=== PATIENT | male | born 1970 | race Caucasian/White ===

== ENCOUNTER 2021-05-09 13:52 | Emergency (ER) | payer MEDICAID ==
[2021-05-09 14:09] VITALS: BP 129/74; PULSE 61; RESP 18; TEMP 98.1
--- NOTE | 2021-05-09 15:36 | ED ---
General Adult HPI - General Chief complaint: Fever Stated complaint: Wants COVID Test Time Seen by Provider: 05/09/21 15:25 Source: patient Mode of arrival: ambulatory Limitations: no limitations - History of Present Illness Initial comments: Dictation was produced using [employer] dictation software. please excuse any grammatical, word or spelling errors. Chief Complaint: 51-year-old male presents to the emergency department for covid test History of Present Illness: Is 51-year-old male presents today for Covid test. Over the last couple days he's been having symptoms of fatigue and fever with generalized weakness. He states that his symptoms then reminded him of when he was contracted Covid several months ago. Patient states that he recovered. He feels fine at the moment. Once to be tested in order to work activities. Patient denies any symptoms at this time. The ROS documented in this emergency department record has been reviewed and confirmed by me. Those systems with pertinent positive or negative responses have been documented in the HPI. All other systems are other negative and/or noncontributory. PHYSICAL EXAM: General Impression: Alert and oriented x3, not in acute distress HEENT: Normocephalic atraumatic, extra-ocular movements intact, pupils equal and reactive to light bilaterally, mucous membranes moist. Cardiovascular: Heart regular rate and rhythm Chest: Able to complete full sentences, no retractions, no tachypnea Abdomen: abdomen soft, non-tender, non-distended, no organomegaly Musculoskeletal: Pulses present and equal in all extremities, no peripheral edema Motor: no focal deficits noted Neurological: CN II-XII grossly intact, no focal motor or sensory deficits noted Skin: Intact with no visualized rashes Psych: Normal affect and mood ED course: 51-year-old male presents to the emergency department for Covid test. He did have symptoms concerning for Covid that resolved on its own. Vital signs upon arrival are within acceptable limits. Patient not hypoxic. Physical examination is benign. Coronal virus test is negative. Patient discharged. - Related Data Allergies Allergy/AdvReac Type Severity Reaction Status Date / Time No Known Allergies Allergy Verified 05/09/21 14:07 Review of Systems ROS Statement: Those systems with pertinent positive or pertinent negative responses have been documented in the HPI. ROS Other: All systems not noted in ROS Statement are negative. Past Medical History Past Medical History: No Reported History History of Any Multi-Drug Resistant Organisms: None Reported Past Surgical History: No Surgical Hx Reported Past Psychological History: No Psychological Hx Reported Smoking Status: Never smoker Past Alcohol Use History: None Reported Past Drug Use History: None Reported General Exam Limitations: no limitations Course Vital Signs 05/09/21 14:08 Temperature 98.1 F Pulse Rate 61 Respiratory 18 Rate Blood Pressure 129/74 O2 Sat by Pulse 97 Oximetry Medical Decision Making - Lab Data Lab Results 05/09/21 Range/Units 14:25 Coronavirus (PCR) Not Detected (Not Detectd) Disposition Clinical Impression: URI (upper respiratory infection) Disposition: HOME SELF-CARE Condition: Fair Instructions (If sedation given, give patient instructions): Coronavirus Disease 2019 (COVID-19) Is patient prescribed a controlled substance at d/c from ED?: No Referrals: None,Stated [Primary Care Provider] - 1-2 days
== END 2021-05-09 15:55 | disposition home or self-care (01) ==
LOC: EC 13:52
DX: J06.9 Acute upper respiratory infection, unspecified (principal); R53.1 Weakness; Z20.822 Contact with and (suspected) exposure to COVID-19
CPT/HCPCS: 87635; 99284